=== PATIENT | female | born 1995 | race Caucasian/White ===

== ENCOUNTER 2017-02-10 22:33 | Emergency (ER) | payer OTHER ==
--- NOTE | 2017-02-10 23:26 | C.PDOC ---
History Of Present Illness A 21 y/o F c/o headache with associated nausea and vomiting for a week. Denies visual changes, dizziness, head injury, weakness, or any other complaints. Time Seen by Provider: 02/10/17 23:23 Chief Complaint (Nursing): Headache History Per: Patient History/Exam Limitations: no limitations Onset/Duration Of Symptoms: Days Current Symptoms Are (Timing): Still Present Severity: Mild Associated Symptoms: Nausea, Vomiting. denies: Photophobia, Blurred Vision, Extremity Weakness Recent travel outside of the [place]: No Additional History Per: Patient Past Medical History Reviewed: Historical Data, Nursing Documentation, Vital Signs Vital Signs: Last Vital Signs Temp 100.8 F H 02/10/17 22:40 Pulse 102 H 02/10/17 22:40 Resp 16 02/10/17 22:40 BP 125/78 02/10/17 22:40 Pulse Ox 99 02/10/17 23:27 Family History: States: Unknown Family Hx - Social History Hx Alcohol Use: No Hx Substance Use: No - Immunization History Hx Influenza Vaccination: No Hx Pneumococcal Vaccination: No Review Of Systems Except As Marked, All Systems Reviewed And Found Negative. Constitutional: Negative for: Other (Head injury) Eyes: Negative for: Vision Change Gastrointestinal: Positive for: Nausea, Vomiting Neurological: Positive for: Headache. Negative for: Weakness, Dizziness Physical Exam - Physical Exam Appears: Non-toxic, In Acute Distress (Moderate distress) Skin: Warm, Dry Head: Atraumatic, Normacephalic Eye(s): bilateral: Other (Fundoscopy normal) Neck: Normal ROM, Supple, No Other (Rigidity) Cardiovascular: Rhythm Regular Respiratory: Normal Breath Sounds, No Rales, No Rhonchi, No Wheezing Neurological/Psych: Oriented x3, Normal Speech, Normal Cognition, Normal Cranial Nerves, Normal Motor, Normal Sensation, Other (No focal deficit) Gait: Steady ED Course And Treatment - Laboratory Results Result Diagrams: 02/10/17 23:32 02/10/17 23:32 O2 Sat by Pulse Oximetry: 99 (RA) Pulse Ox Interpretation: Normal Medical Decision Making Medical Decision Making: Impression: A 21 y/o F c/o headache with associated nausea and vomiting for a week. Plans: -CT Head -Blood labs -Toradol -Reglan -UA Disposition Counseled Patient/Family Regarding: Diagnosis - Disposition Referrals: [facility] [Outside] Disposition: HOME/ ROUTINE Disposition Time: 00:18 Condition: STABLE Prescriptions: Metoclopramide [Reglan] 1 tab PO TID PRN #25 tab PRN Reason: Nausea/Vomiting Naproxen [Naprosyn Tab] 375 mg PO TIDPC #20 tab Instructions: General Headache (ED) Forms: [facility] ([place]) - POA Present On Arrival: None - Clinical Impression Clinical Impression: Headache - Scribe Statement The provider has reviewed the documentation as recorded by the Scribe Mame carballo All medical record entries made by the Scribe were at my direction and personally dictated by me. I have reviewed the chart and agree that the record accurately reflects my personal performance of the history, physical exam, medical decision making, and the department course for this patient. I have also personally directed, reviewed, and agree with the discharge instructions and disposition.
[2017-02-10 23:35] LABS: BASO % 0.5 % (0.0-2.0); EOS % 0.1 % (0.0-4.0); LYMPH # 0.9 K/uL (1.0-4.3); LYMPH % 10.1 % (20.0-40.0); MEAN CELL VOLUME 89.1 fL (81.0-99.0); MEAN CORPUSCULAR HEMOGLOBIN 30.2 pg (27.0-31.0); MEAN CORPUSCULAR HGB CONC 33.9 g/dL (33.0-37.0); MEAN PLATELET VOLUME 8.1 fL (7.2-11.7); MONO # 0.3 K/uL (0.0-0.8); MONO % 3.2 % (0.0-10.0); RED CELL DISTRIBUTION WIDTH 14.1 % (11.5-14.5); WHITE BLOOD COUNT 9.1 K/uL (4.8-10.8)
[2017-02-10 23:43] LABS: CHLORIDE 96 mmol/L (98-107)
[2017-02-10 23:44] LABS: POTASSIUM 4.1 mmol/L (3.6-5.2); SODIUM 138 mmol/L (132-148)
[2017-02-10 23:46] LABS: ALKALINE PHOSPHATASE 61 U/L (38-126); AST/SGOT 25 U/L (14-36); BILIRUBIN,TOTAL 0.6 mg/dL (0.2-1.3); BLOOD UREA NITROGEN 9 mg/dL (7-17); CARBON DIOXIDE 25 mmol/L (22-30); GFR AFRICAN-AMERICAN > 60; GLUCOSE,RANDOM 92 mg/dL (65-105); TOTAL PROTEIN 8.4 g/dL (6.3-8.3)
[2017-02-10 23:47] LABS: ALT/SGPT 27 U/L (9-52); CALCIUM 9.4 mg/dl (8.6-10.4)
--- NOTE | 2017-02-10 23:55 | CT ---
EXAM: CT Head Without Intravenous Contrast CLINICAL HISTORY: 21 years old, female; Pain; Headache TECHNIQUE: Axial computed tomography images of the head/brain without intravenous contrast. This CT exam was performed using one or more of the following dose reduction techniques: automated exposure control, adjustment of the mA and/or kV according to patient size, and/or use of iterative reconstruction technique. COMPARISON: No relevant prior studies available. FINDINGS: Brain: No acute intracranial hemorrhage. No significant white matter disease. No edema. Ventricles: No significant ventriculomegaly. Bones: No acute displaced fracture. Sinuses: Unremarkable as visualized. No acute sinusitis. Mastoid air cells: Unremarkable as visualized. No mastoid effusion. IMPRESSION: No acute intracranial hemorrhage, or suspicious mass effect.
[2017-02-11 00:47] VITALS: BP 95/60; PULSE 100; RESP 18; TEMP 98.7; O2SAT 96
== END 2017-02-11 00:46 | disposition home or self-care (01) ==
LOC: C.ER 22:33
DX: R51 Headache (principal)
CPT/HCPCS: 70450; 80053; 84703; 85025; 96374; 96375; 99284; J1885; J2765

== ENCOUNTER 2017-02-11 11:23 | Inpatient (IN) | payer OTHER ==
--- NOTE | 2017-02-11 12:37 | C.PDOC ---
History Of Present Illness 21 y/o female presents to emergency department with complaint of headache for more than 1 week, worse since Wednesday (3 days ago). Patient reports she was seen by an outside physician and given Relpax. Patient notes she feels headache behind her eyes and describes pain as throbbing. Patient was evaluated in this ER last night for similar symptoms, was discharged home, but now states she is not feeling better. Patient reports she took 1 dose of medication prescribed last night w/o relief, states she feels worse today, and feels "cold". Patient also reports pain in the back of her head and upper back / neck. Denies recent travel, visual changes, nausea, vomiting, new weakness or numbness, or other associated symptoms. Time Seen by Provider: 02/11/17 11:58 Chief Complaint (Nursing): Headache History Per: Patient History/Exam Limitations: no limitations Onset/Duration Of Symptoms: Days Current Symptoms Are (Timing): Worse Quality: "Pain", Other (throbbing) Associated Symptoms: denies: Blurred Vision, Nausea, Vomiting, Extremity Weakness Recent travel outside of the [place]: No Past Medical History Reviewed: Historical Data, Nursing Documentation, Vital Signs Vital Signs: Last Vital Signs Temp 97.5 F L 02/11/17 18:15 Pulse 89 02/11/17 18:15 Resp 18 02/11/17 18:15 BP 107/66 02/11/17 18:15 Pulse Ox 99 02/11/17 18:15 - Medical History PMH: No Chronic Diseases Family History: States: Unknown Family Hx - Social History Hx Alcohol Use: No Hx Substance Use: No - Immunization History Hx Influenza Vaccination: No Hx Pneumococcal Vaccination: No Review Of Systems Constitutional: Positive for: Fever Eyes: Negative for: Vision Change, Redness ENT: Negative for: Ear Pain, Throat Pain Cardiovascular: Negative for: Chest Pain, Palpitations Respiratory: Negative for: Cough, Shortness of Breath, Wheezing Gastrointestinal: Negative for: Nausea, Vomiting Musculoskeletal: Positive for: Neck Pain Skin: Negative for: Rash Neurological: Positive for: Headache. Negative for: Weakness, Numbness, Dizziness Physical Exam - Physical Exam Appears: Non-toxic, No Acute Distress Skin: Warm (skin warm to touch), Dry, No Rash Head: Atraumatic, Normacephalic Eye(s): bilateral: Normal Inspection, PERRL, EOMI Nose: Normal Oral Mucosa: Moist Throat: Normal, No Erythema, No Exudate Neck: Supple, Other (discomfort with flexion) Chest: Symmetrical Cardiovascular: Rhythm Regular (tachycardic) Respiratory: Normal Breath Sounds, No Rales, No Rhonchi, No Wheezing Gastrointestinal/Abdominal: Soft, No Tenderness, No Guarding, No Rebound Back: Normal Inspection, No Vertebral Tenderness, No Paraspinal Tenderness Extremity: Normal ROM, Capillary Refill (< 2 sec.), Other (moving all extremities spontaneously, good strength/motor) Extremity: Bilateral: Normal Color And Temperature Neurological/Psych: Oriented x3, Normal Speech, Normal Cognition, Normal Cranial Nerves, Normal Motor, Normal Sensation ED Course And Treatment - Laboratory Results Result Diagrams: 02/11/17 13:12 02/11/17 13:12 O2 Sat by Pulse Oximetry: 100 (RA) Pulse Ox Interpretation: Normal Lumbar Puncture - Time Out Time Out: Site verified, Patient ID confirmed, Sterile procedures obs. - Consent obtained Consent obtained: Written - Performed by Performed by: Attending Physician - Indications Indication(s): Suspected menigitis - Contraindications Contraindications: None - Patient Position Patient position: Sitting - Local Anesthetic Location: L4/L5 - Fluid Appearance Fluid Appearance: Clear - Post-procedure Post-procedure: No leak/bld from LP site, Dressing applied, Patient laid flat, Neurovascular status nml - CSF Studies CSF Studies: Cell count/diff, Glucose, Protein, Gram stain, culture/sensitivity - Complications Complications: None - Patient tolerated procedure Patient tolerated procedure: Well Medical Decision Making Medical Decision Making: Plan: * Labs, Reglan, Tylenol Prior Visits: Notes and results from previous visits were reviewed Progress Notes: Lumbar puncture performed by Dr. Pitts as described above. Cultures ordered, sent to lab. Pt given Vancomycin, Toradol, fluids. Discussed with Dr Chapman; will admit to his service on iso. 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 - Scribe Statement The provider has reviewed the documentation as recorded by the Scribwil Ludwig All medical record entries made by the Sarahibwil were at my direction and personally dictated by me. I have reviewed the chart and agree that the record accurately reflects my personal performance of the history, physical exam, medical decision making, and the department course for this patient. I have also personally directed, reviewed, and agree with the discharge instructions and disposition.
[2017-02-11 13:28] LABS: BASO % 0.4 % (0.0-2.0); HEMOGLOBIN 12.2 g/dL (11.0-16.0); LYMPH # 1.3 K/uL (1.0-4.3); LYMPH % 13.4 % (20.0-40.0); MEAN CELL VOLUME 88.5 fL (81.0-99.0); MEAN CORPUSCULAR HEMOGLOBIN 29.5 pg (27.0-31.0); MEAN CORPUSCULAR HGB CONC 33.4 g/dL (33.0-37.0); MEAN PLATELET VOLUME 8.3 fL (7.2-11.7); MONO # 0.4 K/uL (0.0-0.8); MONO % 3.9 % (0.0-10.0); NEUT # 7.8 K/uL (1.8-7.0); NEUT % 82.3 % (50.0-75.0); RBC 4.14 Mil/uL (3.80-5.20); RED CELL DISTRIBUTION WIDTH 14.1 % (11.5-14.5); WHITE BLOOD COUNT 9.5 K/uL (4.8-10.8)
[2017-02-11] MEDS ORDERED: cefTRIAXone 2 GM IN NS 2 GM/100 ML BAG IVPB STA (13:33)
[2017-02-11 13:45] LABS: ALBUMIN 3.8 g/dL (3.5-5.0)
[2017-02-11 13:48] LABS: AST/SGOT 26 U/L (14-36); BLOOD UREA NITROGEN 11 mg/dL (7-17); GFR AFRICAN-AMERICAN > 60; GFR NON-AFRICAN AMERICAN > 60
[2017-02-11 13:49] LABS: ALT/SGPT 28 U/L (9-52); CALCIUM 8.5 mg/dl (8.6-10.4)
[2017-02-11 13:52] LABS: FLUID TYPE SPINAL FLUID
[2017-02-11 14:03] LABS: SQUAMOUS EPITHIAL 2 /hpf (0-5); URINE BACTERIA OCC (<OCC); URINE BILIRUBIN NEGATIVE (NEGATIVE); URINE BLOOD 1+ (NEGATIVE); URINE CLARITY Clear (Clear); URINE COLOR Straw (YELLOW); URINE GLUCOSE (UA) NORMAL (Normal); URINE LEUKOCYTE ESTERASE 2+ Leu/uL (Negative); URINE NITRATE NEGATIVE (NEGATIVE); URINE PROTEIN NEGATIVE (NEGATIVE); URINE UROBILINOGEN NORMAL mg/dL (0.2-1.0)
[2017-02-11] MEDS ORDERED: Dextrose 5%/0.9% NS 1,000 ML IV ONE ×2 (14:29→15:08)
[2017-02-11 14:37] LABS: CSF APPEARANCE CLEAR/COLORLESS (CLEAR); CSF VOLUME 1 mL (0-1)
[2017-02-11 14:38] LABS: CSF MONO/MACROPHAGE 1 % (0-0)
[2017-02-11] MEDS ORDERED: Vancomycin 1 GM 1 GM/250 ML BAG IVPB ONE (15:52)
[2017-02-11] MEDS: Acyclovir 500 MG in Sodium Chloride 0.9% 100 ML IV SCH (21:36)
[2017-02-12 00:21] LABS: VENOUS BLOOD GAS BASE EXCESS 1.6 mmol/L (0.0-2.0); VENOUS BLOOD GAS PCO2 26 mmHg (40-60); VENOUS BLOOD GAS PO2 66 mm/Hg (30-55); VENOUS BLOOD PH 7.55 (7.32-7.43)
[2017-02-12] MEDS ORDERED: cefTRIAXone 2 GM in Sodium Chloride 0.9% 100 ML IVPB SCH ×3 (03:00→14:30)
[2017-02-12] MEDS: cefTRIAXone 2 GM in Sodium Chloride 0.9% 100 ML IVPB SCH ×2 (03:03→15:35)
[2017-02-12 04:54] LABS: VENOUS BLOOD GAS BASE EXCESS 2.3 mmol/L (0.0-2.0); VENOUS BLOOD GAS PCO2 27 mmHg (40-60); VENOUS BLOOD GAS PO2 26 mm/Hg (30-55); VENOUS BLOOD PH 7.55 (7.32-7.43)
[2017-02-12] MEDS: Acyclovir 500 MG in Sodium Chloride 0.9% 100 ML IV SCH ×3 (05:17→21:30)
--- NOTE | 2017-02-12 07:43 | CP.PCM.PN ---
Subjective - Date & Time of Evaluation Date of Evaluation: 02/12/17 Time of Evaluation: 07:45 - Subjective Subjective: PGY 3 Medicine Progress Note- Dr. Chapman's Service: 21 year old female with no PMHx admitted yesterday with headache. Headaches have been present for the past week and have worsened over the past 3 days. Patient was in the ED the day before and was discharged home. Patient returned due to persistence of symptoms. LP was done in the ED and patient was placed on isolation. Patient seen and examined at bedside this AM. Patient reports headaches this AM. Nursing reports fevers overnight. No nausea or vomiting. Denies recent travel. PMHx: none Meds: none Surgery Hx: none Allergies: None Objective - Vital Signs/Intake and Output Vital Signs (last 24 hours): Temp Pulse Resp BP Pulse Ox 101.5 F H 130 H 20 102/58 L 96 02/12/17 00:00 02/11/17 23:51 02/11/17 23:51 02/11/17 23:51 02/11/17 23:51 - Medications Medications: Current Medications Acetaminophen (Tylenol 325mg Tab) 650 mg PO Q6 PRN PRN Reason: Headache Last Admin: 02/12/17 04:27 Dose: 650 mg Vancomycin HCl 1,000 mg/ (Sodium Chloride) 250 mls @ 166.6 mls/hr IVPB Q12H [facility] Last Admin: 02/12/17 01:14 Dose: 166.6 mls/hr Acyclovir 500 mg/ Sodium (Chloride) 100 mls @ 100 mls/hr IV Q8H [facility] Last Admin: 02/12/17 05:17 Dose: 100 mls/hr Ceftriaxone Sodium 2 gm/ (Sodium Chloride) 100 mls @ 100 mls/hr IVPB Q12H [facility] Last Admin: 02/12/17 03:03 Dose: 100 mls/hr Ondansetron HCl (Zofran Inj) 4 mg IVP Q6 PRN PRN Reason: Nausea/Vomiting Stop: 02/16/17 18:57 Last Admin: 02/11/17 20:04 Dose: 4 mg Pantoprazole Sodium (Protonix Ec Tab) 40 mg PO DAILY [facility] - Constitutional Appears: No Acute Distress - Head Exam Head Exam: NORMAL INSPECTION, NORMOCEPHALIC - Respiratory Exam Respiratory Exam: Clear to Ausculation Bilateral, NORMAL BREATHING PATTERN - Cardiovascular Exam Cardiovascular Exam: REGULAR RHYTHM, +S1, +S2 - GI/Abdominal Exam GI & Abdominal Exam: Soft. absent: Distended, Tenderness - Extremities Exam Extremities Exam: Normal Inspection - Neurological Exam Neurological Exam: Alert, Awake, Oriented x3 - Psychiatric Exam Psychiatric exam: Normal Affect, Normal Mood - Skin Skin Exam: Normal Color, Warm Assessment and Plan (1) Fever Assessment & Plan: Patient with T Max of 102.8 overnight. Patient continued to have fevers through the AM. No leukocytosis this AM. No left shift. LP done in the ED for concern of meningitis. ID consult placed- Dr. Bullard- help appreciated Neuro consult placed- Dr. Collins- help appreciated f/u Brain MRI f/u Blood Cx CSF studies showed no growth at 24 hrs. CSF gram stain shows polymorphous WBCs. No organisms seen. CSF: WBC 425, RBC 28, Total protein 120, glucose 36. VDRL non reactive. f/u CSF Fungal Cx Lactid Acid thie AM 1.8, improved from 2.7 last night. * Acyclovir IVPB - Day 2 * Vancomycin IVPB - Day 2 * Rocephin IVPB- Day 2 Status: Acute (2) Headache Assessment & Plan: Likely secondary to Meningitis. See plan above. Start Percocet 1 tab PO Q4H PRN Status: Acute (3) Prophylactic measure Assessment & Plan: Protonix 40 SC daily SCDs All management as per Dr. Chapman. Status: Acute
[2017-02-12] MEDS: Pantoprazole 40 mg EC Tab PO SCH (11:06)
[2017-02-12 11:42] LABS: BASO # 0.1 K/uL (0.0-0.2); BASO % 0.5 % (0.0-2.0); HEMOGLOBIN 11.7 g/dL (11.0-16.0); LYMPH # 1.7 K/uL (1.0-4.3); LYMPH % 16.2 % (20.0-40.0); MEAN CELL VOLUME 88.6 fL (81.0-99.0); MEAN CORPUSCULAR HEMOGLOBIN 30.1 pg (27.0-31.0); MEAN CORPUSCULAR HGB CONC 33.9 g/dL (33.0-37.0); MEAN PLATELET VOLUME 8.3 fL (7.2-11.7); MONO # 1.7 K/uL (0.0-0.8); MONO % 15.5 % (0.0-10.0); NEUT # 7.2 K/uL (1.8-7.0); NEUT % 67.8 % (50.0-75.0); RBC 3.89 Mil/uL (3.80-5.20); RED CELL DISTRIBUTION WIDTH 14.3 % (11.5-14.5); WHITE BLOOD COUNT 10.7 K/uL (4.8-10.8)
[2017-02-12 11:56] LABS: ALBUMIN 3.3 g/dL (3.5-5.0)
[2017-02-12 11:58] LABS: GFR AFRICAN-AMERICAN > 60; GFR NON-AFRICAN AMERICAN > 60
[2017-02-12 11:59] LABS: ALT/SGPT 21 U/L (9-52); AST/SGOT 20 U/L (14-36); BLOOD UREA NITROGEN 5 mg/dL (7-17); CALCIUM 8.2 mg/dl (8.6-10.4)
[2017-02-12 12:00] LABS: MAGNESIUM 1.9 mg/dL (1.6-2.3)
[2017-02-12 12:10] LABS: N MENINGITIS ACY/W135 NOT REQUIRED (NEGATIVE); N MENINGITIS B/ECOLI K1 NOT REQUIRED (NEGATIVE); STREP PNEUMONIAE NEGATIVE (NEGATIVE); STREPTOCOCCUS B NOT REQUIRED (NEGATIVE)
[2017-02-12] MEDS ORDERED: Oxycodone/Acetaminophen 5/325 mg Tab PO ONE (13:25)
[2017-02-12] MEDS ORDERED: Gadodiamide 287 MG/ML VIAL (15ML) IV ONE (14:35)
[2017-02-12] MEDS ORDERED: Potassium Chloride 20 mEq ER Tab PO ONE (14:42)
--- NOTE | 2017-02-12 15:38 | MRI ---
PROCEDURE: MRI BRAIN WITH AND WITHOUT CONTRAST HISTORY: r/o meningitis COMPARISON: Noncontrast head CT from 02/10/2017 TECHNIQUE: Multiplanar, multisequence MR images of the brain were obtained with and without intravenous contrast enhancement. 12 mL Omniscan was injected intravenously. FINDINGS: HEMORRHAGE: Noncontrast head CT from [facility]: No evidence of an acute or early subacute infarction. BRAIN PARENCHYMA: Long-white matter differentiation is preserved. There is no mass, mass effect or abnormal extra-axial fluid collection. There is no territorial infarction. The midline sagittal structures are normal. ENHANCEMENT: No abnormal intracranial enhancement. VENTRICLES: The ventricles are normal in size, shape and configuration. CRANIUM: There is normal bone marrow signal pattern. ORBITS: Grossly unremarkable. PARANASAL SINUSES/MASTOIDS: Predominantly clear. VASCULAR SYSTEM: There are normal signal voids in the larger intracranial arteries. . OTHER FINDINGS: None . IMPRESSION: No acute intracranial abnormality. Specifically no evidence of abnormal leptomeningeal enhancement or obstructive hydrocephalus to suggest meningitis as clinically questioned.
--- NOTE | 2017-02-12 16:33 | CP.PCM.CON ---
History of Present Illness - History of Present Illness History of Present Illness: 21 year old female admitted yesterday with headache and fever x several days Patient was in the ED the day before and was discharged home. Patient returned due to persistence of symptoms. LP was done in the ED and patient was placed on isolation. works as informal waiter/waitress in [employer] No travel, no pets, no known ill contacts, denies bites claims up to date with vaccines PMHx: none Meds: none Surgery Hx: none Allergies: None Review of Systems - Constitutional Constitutional: As Per HPI, Anorexia, Chills, Fever, Headache, Malaise, Weakness - EENT Eyes: absent: As Per HPI, Blind Spots, Blurred Vision, Change in Vision, Decreased Night Vision, Diplopia, Discharge, Dry Eye, Exophthalmos, Floaters, Irritation, Itchy Eyes, Loss of Peripheral Vision, Pain, Photophobia, Requires Corrective Lenses, Sees Flashes, Spots in Vision, Tunnel Vision, Other Visual Disturbances, Loss of Vision, Other Ears: absent: As Per HPI, Decreased Hearing, Ear Discharge, Ear Pain, Tinnitus, Abnormal Hearing, Disequilibrium, Dizziness, Other Nose/Mouth/Throat: absent: As Per HPI, Epistaxis, Nasal Congestion, Nasal Discharge, Nasal Obstruction, Nasal Trauma, Nose Pain, Post Nasal Drip, Sinus Pain, Sinus Pressure, Bleeding Gums, Change in Voice, Dental Pain, Dry Mouth, Dysphagia, Halitosis, Hoarsness, Lip Swelling, Mouth Lesions, Mouth Pain, Odynophagia, Sore Throat, Throat Swelling, Tongue Swelling, Facial Pain, Neck Pain, Neck Mass, Other - Breasts Breasts: absent: As Per HPI, Change in Shape, Mass, Pain, Nipple Discharge, Nipple Inversion, Skin Changes, Swelling, Other - Cardiovascular Cardiovascular: absent: As Per HPI, Acrocyanosis, Chest Pain, Chest Pain at Rest , Chest Pain with Activity, Claudication, Diaphoresis, Dyspnea, Dyspnea on Exertion, Edema, Irregular Heart Rhythm, Pain Radiating to Arm/Neck/Jaw, Leg Edema, Leg Ulcers, Lightheadedness, Orthopnea, Palpitations, Paroxysmal Nocturnal Dyspnea, Pedal Edema, Radiating Pain, Rapid Heart Rate, Slow Heart Rate, Syncope, Other - Respiratory Respiratory: absent: As Per HPI, Cough, Dyspnea, Hemoptysis, Dyspnea on Exertion , Wheezing, Snoring, Stridor, Pain on Inspiration, Chest Congestion, Excessive Mucous Production, Change in Mucous Color, Pain with Coughing, Other - Gastrointestinal Gastrointestinal: absent: As Per HPI, Abdominal Pain, Belching, Bloating, Change in Bowel Habits, Change in Stool Character, Coffee Ground Emesis, Constipation, Cramping, Diarrhea, Dyspepsia, Dysphagia, Early Satiety, Excessive Flatus, Fecal Incontinence, Heartburn, Hematemesis, Hematochezia, Loose Stools, Melena, Nausea, Odynophagia, Temesmus, Vomiting, Other - Genitourinary Genitourinary: absent: As Per HPI, Change in Urinary Stream, Difficulty Urinating, Dysuria, Flank Pain, Hematuria, Pyuria, Nocturia, Urinary Incontinence, Urinary Frequency, Urinary Hesitance, Urinary Urgency, Voiding Freq/Small Amts, Freq UTI, Hx Renal/Bladder Calculi, Hx /Renal Surgery, Bladder Distension, Other - Reproductive: Female Reproductive:Female: absent: As Per HPI, Amenorrhea, Amenorrhea/ Control, Currently Menstual, Cycle <21 Days, Cycle >35 Days, Cycle Variable, Menses 1-7 Days, Menses >/= 8 Days, Menses Variable, Cycle > 4 Weeks Between, No Menses for 6 Months, Heavy Menses, Light Menses, Normal Menses, Spotting Between Cycles , S/P Hysterectomy, Menopausal, Post Menopausal, Premenarche, Abnormal Vaginal Bleeding, Dysmenorrhea, Dyspareunia, Genital Lesions, Genital Pruritis, Pelvic Pain, Prolapse Symptoms, Sexual Dysfunction, Vaginal Discharge, Vaginal Dryness , Vaginal Odor, Vaginal Pruritis, Other - Menstruation Menstruation: absent: As Per HPI, Amenorrhea, Amenorrhea/ Control, Currently Menstual, Cycle <21 Days, Cycle >35 Days, Cycle Variable, Menses 1-7 Days, Menses >/= 8 Days, Menses Variable, Cycle > 4 Weeks Between, No Menses for 6 Months, Heavy Menses, Light Menses, Normal Menses, Spotting Between Cycles , S/P Hysterectomy, Menopausal, Post Menopausal, Premenarche, Abnormal Vaginal Bleeding, Dysmenorrhea, Other - Musculoskeletal Musculoskeletal: absent: As Per HPI, Abnormal Gait, Arthralgias, Atrophy, Back Pain, Deformity, Joint Swelling, Limited Range of Motion, Loss of Height, Muscle Cramps, Muscle Weakness, Myalgias, Neck Pain, Numbness, Radiating Pain into Limb, Stiffness, Tingling, Other - Integumentary Integumentary: absent: As Per HPI, Acne, Alopecia, Bleeding Lesions, Change in Hair, Change in Nails, Change in Pigmentation, Changing Lesions, Dry Skin, Erythema, Furuncle, Hirsutism, Lesions, New Lesions, Non-Healing Lesions, Photosensitivity, Pruritus, Rash, Skin Pain, Skin Ulcer, Sores, Striae, Swelling , Unusual Bruising, Wounds, Jaundice, Other - Neurological Neurological: As Per HPI - Psychiatric Psychiatric: absent: As Per HPI, Abnormal Sleep Pattern, Anhedonia, Anxiety, Auditory Hallucinations, Behavioral Changes, Change in Appetite, Change in Libido, Confusion, Depression, Difficulty Concentrating, Hallucinations, Homicidal Ideation, Hopelessness, Irritability, Memory Loss, Mood Swings, Panic Attacks, Paranoia, Suicidal Ideation, Visual Hallucinations, Tactile Hallucinations, Other - Endocrine Endocrine: absent: As Per HPI, Change in Body Appearance, Change in Libido, Cold Intolorance, Deepening of Voice, Excessive Sweating, Fatigue, Flushing, Heat Intolorance, Increase in Ring/Shoe/Hat Size, Palpitations, Polydipsia, Polyphagia, Polyuria, Other - Hematologic/Lymphatic Hematologic: absent: As Per HPI, Easy Bleeding, Easy Bruising, Lymphadenopathy, Other Past Patient History - Past Medical History & Family History Past Medical History?: No - Past Social History Smoking Status: Never Smoked - MUSCULOSKELETAL/RHEUMATOLOGICAL Hx Falls: No - PSYCHIATRIC Hx Substance Use: No - SURGICAL HISTORY Hx Surgeries: No - ANESTHESIA Hx Anesthesia: No Hx Anesthesia Reactions: No Meds Allergies/Adverse Reactions: Allergies Allergy/AdvReac Type Severity Reaction Status Date / Time No Known Allergies Allergy Verified 02/11/17 11:40 - Medications Medications: Current Medications Acetaminophen (Tylenol 325mg Tab) 650 mg PO Q6 PRN PRN Reason: Headache Last Admin: 02/12/17 08:23 Dose: 650 mg Vancomycin HCl 1,000 mg/ (Sodium Chloride) 250 mls @ 166.6 mls/hr IVPB Q12H [facility] Last Admin: 02/12/17 13:31 Dose: 166.6 mls/hr Acyclovir 500 mg/ Sodium (Chloride) 100 mls @ 100 mls/hr IV Q8H [facility] Last Admin: 02/12/17 05:17 Dose: 100 mls/hr Ceftriaxone Sodium 2 gm/ (Sodium Chloride) 100 mls @ 100 mls/hr IVPB Q12H [facility] Last Admin: 02/12/17 15:35 Dose: 100 mls/hr Ondansetron HCl (Zofran Inj) 4 mg IVP Q6 PRN PRN Reason: Nausea/Vomiting Stop: 02/16/17 18:57 Last Admin: 02/12/17 13:55 Dose: 4 mg Oxycodone/Acetaminophen (Percocet 5/325 Mg Tab) 1 tab PO Q4H PRN PRN Reason: Headache Stop: 02/15/17 14:47 Pantoprazole Sodium (Protonix Ec Tab) 40 mg PO DAILY [facility] Last Admin: 02/12/17 11:06 Dose: 40 mg Physical Exam - Constitutional Appears: Toxic, In Acute Distress - Head Exam Head Exam: ATRAUMATIC, NORMAL INSPECTION, NORMOCEPHALIC - Eye Exam Eye Exam: PERRL. absent: Scleral icterus - ENT Exam ENT Exam: Mucous Membranes Dry, Normal External Ear Exam, Normal Oropharynx Additional comments: + nucal rigidity - Neck Exam Neck exam: Negative for: Lymphadenopathy, Thyromegaly - Respiratory Exam Respiratory Exam: Decreased Breath Sounds, Clear to Auscultation Bilateral - Cardiovascular Exam Cardiovascular Exam: REGULAR RHYTHM, +S1, +S2 - GI/Abdominal Exam GI & Abdominal Exam: Diminished Bowel Sounds, Soft. absent: Distended, Guarding , Rebound, Rigid, Tenderness - Rectal Exam Rectal Exam: Deferred - Exam Exam: NORMAL INSPECTION - Extremities Exam Extremities exam: Positive for: pedal pulses present. Negative for: calf tenderness, pedal edema, tenderness - Back Exam Back exam: absent: CVA tenderness (L), CVA tenderness (R), paraspinal tenderness - Neurological Exam Neurological exam: Alert, CN II-XII Intact, Oriented x3, Reflexes Normal - Psychiatric Exam Psychiatric exam: Depressed, Flat Affect - Skin Skin Exam: Dry, Intact Results - Vital Signs Recent Vital Signs: Last Vital Signs Temp 102.7 F H 02/12/17 08:23 Pulse 107 H 02/12/17 08:15 Resp 20 02/12/17 08:15 BP 117/73 02/12/17 08:15 Pulse Ox 97 02/12/17 08:15 - Labs Result Diagrams: 02/12/17 11:35 02/12/17 11:35 Labs: Laboratory Results - last 24 hr 02/11/17 02/11/17 02/12/17 19:45 19:45 04:50 WBC RBC Hgb Hct MCV MCH MCHC RDW Plt Count MPV Neut % (Auto) Lymph % (Auto) Mcleod % (Auto) Eos % (Auto) Baso % (Auto) Neut # Lymph # Mcleod # Eos # Baso # pO2 26 L VBG pH 7.55 H VBG pCO2 27 L VBG HCO3 25.7 VBG Total CO2 24.4 VBG O2 Sat (Calc) 65.6 H VBG Base Excess 2.3 H VBG Potassium 3.6 Sodium 142.0 Chloride 111.0 H Glucose 135 H Lactate 1.8 Potassium Carbon Dioxide Anion Gap BUN Creatinine Est GFR ( Amer) Est GFR (Non-Af Amer) Random Glucose Calcium Magnesium Total Bilirubin AST ALT Alkaline Phosphatase Total Protein Albumin Globulin Albumin/Globulin Ratio Venous Blood Potassium 3.6 HIV 1&2 Antibody Screen Influenza Typ A,B (EIA) Negative for flu a/b H.influenzae Type B Ag Not required N.meningitidis ACY/W135 Not required N.meningi B/E.coli K1 Ag Not required Group B Strep Antigen Not required S. pneumoniae Antigen Negative 02/12/17 02/12/17 02/12/17 07:30 11:35 11:35 WBC 10.7 RBC 3.89 Hgb 11.7 Hct 34.5 MCV 88.6 MCH 30.1 MCHC 33.9 RDW 14.3 Plt Count 255 MPV 8.3 Neut % (Auto) 67.8 Lymph % (Auto) 16.2 L Mcleod % (Auto) 15.5 H Eos % (Auto) 0.0 Baso % (Auto) 0.5 Neut # 7.2 H Lymph # 1.7 Mcleod # 1.7 H Eos # 0.0 Baso # 0.1 pO2 VBG pH VBG pCO2 VBG HCO3 VBG Total CO2 VBG O2 Sat (Calc) VBG Base Excess VBG Potassium Sodium 140 Chloride 102 Glucose Lactate Potassium 3.5 L Carbon Dioxide 22 Anion Gap 19 BUN 5 L Creatinine 0.7 Est GFR ( Amer) > 60 Est GFR (Non-Af Amer) > 60 Random Glucose 128 H Calcium 8.2 L Magnesium 1.9 Total Bilirubin 0.5 AST 20 ALT 21 Alkaline Phosphatase 37 L D Total Protein 6.5 Albumin 3.3 L Globulin 3.2 Albumin/Globulin Ratio 1.0 Venous Blood Potassium HIV 1&2 Antibody Screen Negative Influenza Typ A,B (EIA) H.influenzae Type B Ag N.meningitidis ACY/W135 N.meningi B/E.coli K1 Ag Group B Strep Antigen S. pneumoniae Antigen Assessment & Plan (1) Meningitis Status: Acute (2) Meningitis Status: Acute (3) Fever Status: Acute (4) Headache Status: Acute - Assessment and Plan (Free Text) Assessment: meningitis- likely viral await neuro consult cont iv antibiotics pending cultures
[2017-02-12] MEDS: Oxycodone/Acetaminophen 5/325 mg Tab PO PRN ×2 (17:33→21:30)
--- NOTE | 2017-02-12 17:47 | CP.PCM.PCO ---
Physician Communication Note - Physician Communication Note Physician Communication Note: viral meningitis, c/w antiviral, supportive mx, fioricet for serrano.
--- NOTE | 2017-02-12 21:26 | CON ---
DATE: 02/12/2017 HISTORY OF PRESENT ILLNESS: This is a 21-year-old female with past medical history not significant, came here with complaint of headache since Wednesday 3 days ago, and the patient went to see the private MD, who gave her Relpax for headache behind the eyes and came to the hospital emergency room. CAT scan of the head was done and the patient was discharged home and came back again with the similar complaints and at this time, the spinal tap was performed and appropriate antibiotics started. PAST MEDICAL HISTORY: As above. SOCIAL HISTORY: She does not smoke, does not drink. REVIEW OF SYSTEMS: Positive for headache and fever. PHYSICAL EXAMINATION VITAL SIGNS: Blood pressure 107/66. HEENT: Normocephalic and atraumatic. NECK: Supple. NEUROLOGIC: Awake and oriented to self and place. Cranial nerves II through XII are tested. Pupils are reactive. EOM intact. *------*. No facial asymmetry. Tongue midline. Motor examination, moves all the extremities. *------*. Deep tendon reflexes are 1+. Both plantars downgoing. Sensory appears intact. Cerebellar and gait deferred. LABORATORY DATA: WBC 9.5, hemoglobin 12.2, hematocrit 36.6 and platelets 286. Sodium 134, potassium 3.4, chloride 94, CO2 of 21, glucose 92, BUN 11, creatinine 0.5. Infectious disease consult was ordered and we started antibiotics and the spinal tap was done and the spinal tap is suggestive of meningitis, wbc is 425 and protein 120, glucose 36. Majority of these cells, lymphocytes. Workup in progress and we will follow. IMPRESSION: Headache, fever, probably meningitis. Prince Collins MD
[2017-02-13] MEDS: cefTRIAXone 2 GM in Sodium Chloride 0.9% 100 ML IVPB SCH ×2 (03:05→15:13)
[2017-02-13] MEDS: Oxycodone/Acetaminophen 5/325 mg Tab PO PRN ×2 (06:54→11:48)
[2017-02-13] MEDS: Acyclovir 500 MG in Sodium Chloride 0.9% 100 ML IV SCH ×3 (07:00→21:30)
[2017-02-13 07:15] LABS: BASO # 0.1 K/uL (0.0-0.2); BASO % 1.2 % (0.0-2.0); EOS % 0.3 % (0.0-4.0); HEMOGLOBIN 11.4 g/dL (11.0-16.0); LYMPH % 29.6 % (20.0-40.0); MEAN CELL VOLUME 89.1 fL (81.0-99.0); MEAN CORPUSCULAR HEMOGLOBIN 30.1 pg (27.0-31.0); MEAN CORPUSCULAR HGB CONC 33.8 g/dL (33.0-37.0); MEAN PLATELET VOLUME 8.3 fL (7.2-11.7); MONO # 0.8 K/uL (0.0-0.8); MONO % 11.1 % (0.0-10.0); NEUT % 57.8 % (50.0-75.0); NRBC % 0.1 % (0.0-2.0); RBC 3.79 Mil/uL (3.80-5.20); WHITE BLOOD COUNT 6.9 K/uL (4.8-10.8)
[2017-02-13 08:06] LABS: ALBUMIN 3.2 g/dL (3.5-5.0)
[2017-02-13 08:08] LABS: GFR AFRICAN-AMERICAN > 60; GFR NON-AFRICAN AMERICAN > 60
[2017-02-13 08:09] LABS: ALB/GLOB RATIO 0.9 (1.0-2.1); ALT/SGPT 24 U/L (9-52); AST/SGOT 19 U/L (14-36); BLOOD UREA NITROGEN 3 mg/dL (7-17)
[2017-02-13 08:10] LABS: MAGNESIUM 1.8 mg/dL (1.6-2.3)
[2017-02-13] MEDS: Pantoprazole 40 mg EC Tab PO SCH (09:18)
[2017-02-13] MEDS ORDERED: DiphenhydrAMINE 12.5 mg/5 ml LIQ UD (5 ml) PO ONE (21:34)
[2017-02-14] MEDS: cefTRIAXone 2 GM in Sodium Chloride 0.9% 100 ML IVPB SCH ×2 (02:45→15:24)
--- NOTE | 2017-02-14 03:16 | HP ---
HISTORY OF PRESENT ILLNESS: A 21-year-old female in the hospital with headaches and fever. The patient came to the hospital for admission. The patient denies any . PHYSICAL EXAMINATION: GENERAL: The patient is awake, alert and oriented. VITAL SIGNS: Temperature is 98, pulse 90. HEENT: Within normal limits. NECK: Supple. CHEST: Symmetrical. HEART: Regular. ABDOMEN: Soft. EXTREMITIES: No edema. IMPRESSION: The patient suffers from antibiotics. Halle Chapman MD
[2017-02-14] MEDS: Acyclovir 500 MG in Sodium Chloride 0.9% 100 ML IV SCH ×3 (05:58→21:51)
[2017-02-14 06:58] LABS: BASO # 0.1 K/uL (0.0-0.2); EOS # 0.1 K/uL (0.0-0.7); EOS % 0.9 % (0.0-4.0); HEMOGLOBIN 11.9 g/dL (11.0-16.0); LYMPH # 2.3 K/uL (1.0-4.3); LYMPH % 38.8 % (20.0-40.0); MEAN CELL VOLUME 88.6 fL (81.0-99.0); MEAN CORPUSCULAR HEMOGLOBIN 29.5 pg (27.0-31.0); MEAN CORPUSCULAR HGB CONC 33.2 g/dL (33.0-37.0); MEAN PLATELET VOLUME 8.3 fL (7.2-11.7); MONO # 0.8 K/uL (0.0-0.8); MONO % 14.3 % (0.0-10.0); NEUT # 2.6 K/uL (1.8-7.0); RBC 4.04 Mil/uL (3.80-5.20); WHITE BLOOD COUNT 5.9 K/uL (4.8-10.8)
[2017-02-14 07:10] LABS: ALBUMIN 3.2 g/dL (3.5-5.0)
[2017-02-14 07:13] LABS: ALB/GLOB RATIO 0.9 (1.0-2.1); ALT/SGPT 23 U/L (9-52); AST/SGOT 17 U/L (14-36); BLOOD UREA NITROGEN 4 mg/dL (7-17); GFR AFRICAN-AMERICAN > 60; GFR NON-AFRICAN AMERICAN > 60
[2017-02-14 07:14] LABS: CALCIUM 8.3 mg/dl (8.6-10.4); MAGNESIUM 2.2 mg/dL (1.6-2.3)
[2017-02-14] MEDS: Oxycodone/Acetaminophen 5/325 mg Tab PO PRN (08:09)
[2017-02-14] MEDS: Pantoprazole 40 mg EC Tab PO SCH (09:45)
--- NOTE | 2017-02-14 16:21 | CP.PCM.PN ---
Subjective - Date & Time of Evaluation Date of Evaluation: 02/14/17 Time of Evaluation: 09:00 - Subjective Subjective: awake alert nad less fever and less headache cultures neg thus far Objective - Vital Signs/Intake and Output Vital Signs (last 24 hours): Temp Pulse Resp BP Pulse Ox 97.7 F 96 H 20 99/55 L 97 02/14/17 15:50 02/14/17 15:50 02/14/17 15:50 02/14/17 15:50 02/14/17 15:50 - Medications Medications: Current Medications Acetaminophen (Tylenol 325mg Tab) 650 mg PO Q6 PRN PRN Reason: Headache Last Admin: 02/13/17 03:09 Dose: 650 mg Vancomycin HCl 1,000 mg/ (Sodium Chloride) 250 mls @ 166.6 mls/hr IVPB Q12H [facility] Last Admin: 02/14/17 12:57 Dose: 166.6 mls/hr Acyclovir 500 mg/ Sodium (Chloride) 100 mls @ 100 mls/hr IV Q8H [facility] Last Admin: 02/14/17 14:16 Dose: 100 mls/hr Ceftriaxone Sodium 2 gm/ (Sodium Chloride) 100 mls @ 100 mls/hr IVPB Q12H [facility] Last Admin: 02/14/17 15:24 Dose: 100 mls/hr Ondansetron HCl (Zofran Inj) 4 mg IVP Q6 PRN PRN Reason: Nausea/Vomiting Stop: 02/16/17 18:57 Last Admin: 02/14/17 08:09 Dose: 4 mg Oxycodone/Acetaminophen (Percocet 5/325 Mg Tab) 1 tab PO Q4H PRN PRN Reason: Headache Stop: 02/15/17 14:47 Last Admin: 02/14/17 08:09 Dose: 1 tab Pantoprazole Sodium (Protonix Ec Tab) 40 mg PO DAILY [facility] Last Admin: 02/14/17 09:45 Dose: 40 mg - Constitutional Appears: Non-toxic, Chronically Ill - Head Exam Head Exam: NORMOCEPHALIC - Eye Exam Eye Exam: PERRL. absent: Scleral icterus - ENT Exam ENT Exam: Mucous Membranes Dry - Neck Exam Neck Exam: absent: Lymphadenopathy - Respiratory Exam Respiratory Exam: Decreased Breath Sounds, Clear to Ausculation Bilateral - Cardiovascular Exam Cardiovascular Exam: REGULAR RHYTHM - GI/Abdominal Exam GI & Abdominal Exam: Distended, Soft - Rectal Exam Rectal Exam: Deferred - Exam Exam: NORMAL INSPECTION - Extremities Exam Extremities Exam: absent: Pedal Edema - Back Exam Back Exam: absent: CVA tenderness (L), CVA tenderness (R) - Neurological Exam Neurological Exam: Alert, Awake, Oriented x3 - Psychiatric Exam Psychiatric exam: Normal Mood - Skin Skin Exam: Dry, Intact Assessment and Plan (1) Meningitis Status: Acute (2) Meningitis Status: Acute (3) Fever Status: Acute (4) Headache Status: Acute - Assessment and Plan (Free Text) Assessment: cont iv rx for 7 days await hsv titers will need folow up serologies after 3 weeks
[2017-02-15] MEDS: cefTRIAXone 2 GM in Sodium Chloride 0.9% 100 ML IVPB SCH ×2 (02:58→14:43)
[2017-02-15] MEDS: Acyclovir 500 MG in Sodium Chloride 0.9% 100 ML IV SCH ×3 (05:42→21:35)
[2017-02-15 07:30] LABS: BASO % 0.7 % (0.0-2.0); EOS # 0.3 K/uL (0.0-0.7); EOS % 4.8 % (0.0-4.0); HEMOGLOBIN 12.5 g/dL (11.0-16.0); LYMPH # 2.4 K/uL (1.0-4.3); LYMPH % 43.3 % (20.0-40.0); MEAN CELL VOLUME 88.9 fL (81.0-99.0); MEAN CORPUSCULAR HEMOGLOBIN 30.2 pg (27.0-31.0); MEAN PLATELET VOLUME 8.1 fL (7.2-11.7); MONO # 0.6 K/uL (0.0-0.8); MONO % 11.8 % (0.0-10.0); NEUT # 2.2 K/uL (1.8-7.0); NEUT % 39.4 % (50.0-75.0); RBC 4.14 Mil/uL (3.80-5.20); RED CELL DISTRIBUTION WIDTH 13.9 % (11.5-14.5); WHITE BLOOD COUNT 5.5 K/uL (4.8-10.8)
[2017-02-15 08:17] LABS: ALBUMIN 3.2 g/dL (3.5-5.0)
[2017-02-15 08:20] LABS: AST/SGOT 19 U/L (14-36); GFR AFRICAN-AMERICAN > 60; GFR NON-AFRICAN AMERICAN > 60
[2017-02-15 08:21] LABS: ALB/GLOB RATIO 1.1 (1.0-2.1); ALT/SGPT 19 U/L (9-52); BLOOD UREA NITROGEN 7 mg/dL (7-17); CALCIUM 7.8 mg/dl (8.6-10.4)
[2017-02-15 08:22] LABS: MAGNESIUM 1.9 mg/dL (1.6-2.3)
[2017-02-15] MEDS: Pantoprazole 40 mg EC Tab PO SCH (09:43)
--- NOTE | 2017-02-15 12:11 | CP.PCM.PN ---
Subjective - Date & Time of Evaluation Date of Evaluation: 02/15/17 Time of Evaluation: 07:00 - Subjective Subjective: iv rx in progress Objective - Vital Signs/Intake and Output Vital Signs (last 24 hours): Temp Pulse Resp BP Pulse Ox 98 F 69 20 102/64 97 02/15/17 07:47 02/15/17 07:47 02/15/17 07:47 02/15/17 07:47 02/15/17 07:47 Intake and Output: 02/15/17 02/15/17 06:59 18:59 Intake Total 220 Output Total 100 Balance 120 - Medications Medications: Current Medications Acetaminophen (Tylenol 325mg Tab) 650 mg PO Q6 PRN PRN Reason: Headache Last Admin: 02/13/17 03:09 Dose: 650 mg Vancomycin HCl 1,000 mg/ (Sodium Chloride) 250 mls @ 166.6 mls/hr IVPB Q12H [facility] Last Admin: 02/15/17 01:26 Dose: 166.6 mls/hr Acyclovir 500 mg/ Sodium (Chloride) 100 mls @ 100 mls/hr IV Q8H [facility] Last Admin: 02/15/17 05:42 Dose: 100 mls/hr Ceftriaxone Sodium 2 gm/ (Sodium Chloride) 100 mls @ 100 mls/hr IVPB Q12H [facility] Last Admin: 02/15/17 02:58 Dose: 100 mls/hr Ondansetron HCl (Zofran Inj) 4 mg IVP Q6 PRN PRN Reason: Nausea/Vomiting Stop: 02/16/17 18:57 Last Admin: 02/15/17 12:06 Dose: 4 mg Oxycodone/Acetaminophen (Percocet 5/325 Mg Tab) 1 tab PO Q4H PRN PRN Reason: Headache Stop: 02/15/17 14:47 Last Admin: 02/14/17 08:09 Dose: 1 tab Pantoprazole Sodium (Protonix Ec Tab) 40 mg PO DAILY [facility] Last Admin: 02/15/17 09:43 Dose: 40 mg - Labs Labs: 02/15/17 07:22 02/15/17 07:22 - Constitutional Appears: Non-toxic, Chronically Ill - Head Exam Head Exam: NORMOCEPHALIC - Eye Exam Eye Exam: PERRL - ENT Exam ENT Exam: Mucous Membranes Dry - Neck Exam Neck Exam: absent: Lymphadenopathy - Respiratory Exam Respiratory Exam: Decreased Breath Sounds - Cardiovascular Exam Cardiovascular Exam: REGULAR RHYTHM - GI/Abdominal Exam GI & Abdominal Exam: Distended, Soft - Rectal Exam Rectal Exam: Deferred Assessment and Plan (1) Meningitis Status: Acute (2) Meningitis Status: Acute (3) Fever Status: Acute (4) Headache Status: Acute
--- NOTE | 2017-02-15 14:28 | CP.PCM.PN ---
Subjective - Date & Time of Evaluation Date of Evaluation: 02/15/17 Time of Evaluation: 14:25 - Subjective Subjective: Pt seen and examined at bedside. She appears slightly lethargic and just awoke from sleep. She denies any acute symptoms but states that she continues to have some neck stiffness. She denies f/c/n/v/d/c/cp/sob. Objective - Vital Signs/Intake and Output Vital Signs (last 24 hours): Temp Pulse Resp BP Pulse Ox 98 F 69 20 102/64 97 02/15/17 07:47 02/15/17 07:47 02/15/17 07:47 02/15/17 07:47 02/15/17 07:47 Intake and Output: 02/15/17 02/15/17 06:59 18:59 Intake Total 220 Output Total 100 Balance 120 - Medications Medications: Current Medications Acetaminophen (Tylenol 325mg Tab) 650 mg PO Q6 PRN PRN Reason: Headache Last Admin: 02/13/17 03:09 Dose: 650 mg Vancomycin HCl 1,000 mg/ (Sodium Chloride) 250 mls @ 166.6 mls/hr IVPB Q12H [facility] Last Admin: 02/15/17 12:47 Dose: 166.6 mls/hr Acyclovir 500 mg/ Sodium (Chloride) 100 mls @ 100 mls/hr IV Q8H [facility] Last Admin: 02/15/17 14:04 Dose: 100 mls/hr Ceftriaxone Sodium 2 gm/ (Sodium Chloride) 100 mls @ 100 mls/hr IVPB Q12H [facility] Last Admin: 02/15/17 02:58 Dose: 100 mls/hr Ondansetron HCl (Zofran Inj) 4 mg IVP Q6 PRN PRN Reason: Nausea/Vomiting Stop: 02/16/17 18:57 Last Admin: 02/15/17 12:06 Dose: 4 mg Oxycodone/Acetaminophen (Percocet 5/325 Mg Tab) 1 tab PO Q4H PRN PRN Reason: Headache Stop: 02/15/17 14:47 Last Admin: 02/14/17 08:09 Dose: 1 tab Pantoprazole Sodium (Protonix Ec Tab) 40 mg PO DAILY [facility] Last Admin: 02/15/17 09:43 Dose: 40 mg - Labs Labs: 02/15/17 07:22 02/15/17 07:22 - Constitutional Appears: No Acute Distress - Head Exam Head Exam: ATRAUMATIC, NORMAL INSPECTION - Eye Exam Eye Exam: EOMI, Normal appearance - ENT Exam ENT Exam: Mucous Membranes Moist - Respiratory Exam Respiratory Exam: Clear to Ausculation Bilateral, NORMAL BREATHING PATTERN - Cardiovascular Exam Cardiovascular Exam: REGULAR RHYTHM - GI/Abdominal Exam GI & Abdominal Exam: Soft. absent: Distended, Tenderness - Neurological Exam Neurological Exam: Alert, Awake, Oriented x3 Assessment and Plan - Assessment and Plan (Free Text) Plan: Patient is afebrile ans she appears to be clinically improving. WBC 5.5 this AM. No left shift. ID consult placed- Dr. Bullard- recommendations appreciated continue antibiotics x7days total Acyclovir IVPB - Day 2 Vancomycin IVPB - Day 2 Rocephin IVPB- Day 2 Neuro consult placed- Dr. Collins- Recommendations appreciated Brain MRI: no acute changes Blood Cx: no growth to date CSF studies showed no growth CSF gram stain shows polymorphous WBCs. No organisms seen. CSF: WBC 425, RBC 28, Total protein 120, glucose 36. VDRL non reactive. f/u CSF Fungal Cx Lactate: 1.8 on 02/12/17 Percocet 1 tab PO Q4H PRN pain zofran prn nausea Prophylaxis Protonix 40 SC daily SCDs Plan for discharge on Wednesday with completion of antibiotics All management as per Dr. Chapman.
[2017-02-16] MEDS: cefTRIAXone 2 GM in Sodium Chloride 0.9% 100 ML IVPB SCH ×2 (02:16→15:40)
[2017-02-16] MEDS: Acyclovir 500 MG in Sodium Chloride 0.9% 100 ML IV SCH ×3 (05:46→21:13)
[2017-02-16 07:17] LABS: BASO # 0.1 K/uL (0.0-0.2); EOS # 0.4 K/uL (0.0-0.7); EOS % 6.5 % (0.0-4.0); LYMPH # 2.3 K/uL (1.0-4.3); LYMPH % 36.3 % (20.0-40.0); MEAN CELL VOLUME 89.3 fL (81.0-99.0); MEAN CORPUSCULAR HEMOGLOBIN 29.6 pg (27.0-31.0); MEAN CORPUSCULAR HGB CONC 33.2 g/dL (33.0-37.0); MEAN PLATELET VOLUME 8.5 fL (7.2-11.7); MONO # 0.6 K/uL (0.0-0.8); MONO % 9.3 % (0.0-10.0); NEUT % 46.9 % (50.0-75.0); NRBC % 0.1 % (0.0-2.0); RBC 4.06 Mil/uL (3.80-5.20); WHITE BLOOD COUNT 6.4 K/uL (4.8-10.8)
[2017-02-16 07:46] LABS: ALBUMIN 3.2 g/dL (3.5-5.0)
[2017-02-16 07:49] LABS: ALT/SGPT 20 U/L (9-52); AST/SGOT 18 U/L (14-36); BLOOD UREA NITROGEN 12 mg/dL (7-17); GFR AFRICAN-AMERICAN > 60; GFR NON-AFRICAN AMERICAN > 60
[2017-02-16 07:50] LABS: CALCIUM 8.7 mg/dl (8.6-10.4)
[2017-02-16] MEDS: Pantoprazole 40 mg EC Tab PO SCH (10:51)
--- NOTE | 2017-02-16 11:32 | CP.PCM.PN ---
Subjective - Date & Time of Evaluation Date of Evaluation: 02/16/17 Time of Evaluation: 08:00 - Subjective Subjective: no fever or leukocytosis all cultures neg off isolation cont rx for 7 days Objective - Vital Signs/Intake and Output Vital Signs (last 24 hours): Temp Pulse Resp BP Pulse Ox 98.6 F 66 19 107/69 98 02/16/17 08:00 02/16/17 08:00 02/16/17 08:00 02/16/17 08:00 02/16/17 08:00 Intake and Output: 02/16/17 02/16/17 06:59 18:59 Intake Total 340 Balance 340 - Medications Medications: Current Medications Acetaminophen (Tylenol 325mg Tab) 650 mg PO Q6 PRN PRN Reason: Headache Last Admin: 02/13/17 03:09 Dose: 650 mg Acyclovir 500 mg/ Sodium (Chloride) 100 mls @ 100 mls/hr IV Q8H [facility] Last Admin: 02/16/17 05:46 Dose: 100 mls/hr Ceftriaxone Sodium 2 gm/ (Sodium Chloride) 100 mls @ 100 mls/hr IVPB Q12H [facility] Last Admin: 02/16/17 02:16 Dose: 100 mls/hr Vancomycin/Sodium Chloride (Vancocin) 1 gm in 200 mls @ 133.333 mls/hr IVPB Q12H [facility] Ondansetron HCl (Zofran Inj) 4 mg IVP Q6 PRN PRN Reason: Nausea/Vomiting Stop: 02/16/17 18:57 Last Admin: 02/15/17 12:06 Dose: 4 mg Pantoprazole Sodium (Protonix Ec Tab) 40 mg PO DAILY [facility] Last Admin: 02/16/17 10:51 Dose: 40 mg - Labs Labs: 02/16/17 07:01 02/16/17 07:01 - Constitutional Appears: Non-toxic, Chronically Ill - Head Exam Head Exam: NORMOCEPHALIC - Eye Exam Eye Exam: PERRL. absent: Scleral icterus - ENT Exam ENT Exam: Mucous Membranes Dry - Neck Exam Neck Exam: absent: Lymphadenopathy - Respiratory Exam Respiratory Exam: Decreased Breath Sounds, Clear to Ausculation Bilateral - Cardiovascular Exam Cardiovascular Exam: REGULAR RHYTHM - GI/Abdominal Exam GI & Abdominal Exam: Distended, Soft Assessment and Plan (1) Meningitis Status: Acute (2) Meningitis Status: Acute (3) Fever Status: Acute (4) Headache Status: Acute
[2017-02-16] MEDS: Vancomycin 1 gm/NS 200 ml 1 GM/200 ML BAG IVPB SCH (13:16)
--- NOTE | 2017-02-16 17:23 | CP.PCM.PN ---
Subjective - Date & Time of Evaluation Date of Evaluation: 02/16/17 Time of Evaluation: 17:21 - Subjective Subjective: medicine note for Dr. Chapman's Service Pt seen and examined at bedside. She is in good spirits and states that she is doing well today. No acute events overnight. She has been afebrile. She denies any acute symptoms. She denies f/c/n/v/d/c/cp/sob. Objective - Vital Signs/Intake and Output Vital Signs (last 24 hours): Temp Pulse Resp BP Pulse Ox 98.6 F 66 19 107/69 98 02/16/17 08:00 02/16/17 08:00 02/16/17 08:00 02/16/17 08:00 02/16/17 08:00 Intake and Output: 02/16/17 02/16/17 06:59 18:59 Intake Total 340 680 Balance 340 680 - Medications Medications: Current Medications Acetaminophen (Tylenol 325mg Tab) 650 mg PO Q6 PRN PRN Reason: Headache Last Admin: 02/13/17 03:09 Dose: 650 mg Acyclovir 500 mg/ Sodium (Chloride) 100 mls @ 100 mls/hr IV Q8H [facility] Last Admin: 02/16/17 14:19 Dose: 100 mls/hr Ceftriaxone Sodium 2 gm/ (Sodium Chloride) 100 mls @ 100 mls/hr IVPB Q12H [facility] Last Admin: 02/16/17 15:40 Dose: 100 mls/hr Vancomycin/Sodium Chloride (Vancocin) 1 gm in 200 mls @ 133.333 mls/hr IVPB Q12H [facility] Last Admin: 02/16/17 13:16 Dose: 133.333 mls/hr Ondansetron HCl (Zofran Inj) 4 mg IVP Q6 PRN PRN Reason: Nausea/Vomiting Stop: 02/16/17 18:57 Last Admin: 02/15/17 12:06 Dose: 4 mg Pantoprazole Sodium (Protonix Ec Tab) 40 mg PO DAILY [facility] Last Admin: 02/16/17 10:51 Dose: 40 mg - Labs Labs: 02/16/17 07:01 02/16/17 07:01 - Head Exam Head Exam: ATRAUMATIC, NORMOCEPHALIC - Eye Exam Eye Exam: EOMI, Normal appearance - ENT Exam ENT Exam: Mucous Membranes Moist - Neck Exam Neck Exam: Full ROM - Respiratory Exam Respiratory Exam: Clear to Ausculation Bilateral, NORMAL BREATHING PATTERN - Cardiovascular Exam Cardiovascular Exam: REGULAR RHYTHM - GI/Abdominal Exam GI & Abdominal Exam: Soft. absent: Distended, Tenderness - Neurological Exam Neurological Exam: Alert, Awake, Oriented x3 Assessment and Plan - Assessment and Plan (Free Text) Plan: Viral Meningitis Patient is afebrile and she appears clinically improving; asymptomatic WBC 6.4 this AM. No left shift. ID consult placed- Dr. Bullard- recommendations appreciated continue antibiotics x7days total Acyclovir IVPB - Day 6 Vancomycin IVPB - Day 6 Rocephin IVPB- Day 6 Neuro consult placed- Dr. Collins- Recommendations appreciated Brain MRI: no acute changes Blood Cx: no growth to date CSF studies showed no growth CSF gram stain shows polymorphous WBCs. No organisms seen. CSF: WBC 425, RBC 28, Total protein 120, glucose 36. VDRL non reactive. CSF Fungal Cx negative Lactate: 1.8 on 02/12/17 Percocet 1 tab PO Q4H PRN pain zofran prn nausea Prophylaxis Protonix 40 SC daily SCDs Plan for discharge on Wednesday with completion of antibiotics for a full 7 days as per ID request. All management as per Dr. Chapman.
[2017-02-16 17:40] VITALS: RESP 20
[2017-02-16 20:35] LABS: WNV AB IGM 0.05
[2017-02-17] MEDS: Vancomycin 1 gm/NS 200 ml 1 GM/200 ML BAG IVPB SCH (01:07)
[2017-02-17] MEDS: cefTRIAXone 2 GM in Sodium Chloride 0.9% 100 ML IVPB SCH (03:00)
[2017-02-17] MEDS: Acyclovir 500 MG in Sodium Chloride 0.9% 100 ML IV SCH (05:25)
[2017-02-17 07:18] LABS: BASO # 0.1 K/uL (0.0-0.2); BASO % 0.9 % (0.0-2.0); EOS # 0.5 K/uL (0.0-0.7); EOS % 7.5 % (0.0-4.0); HEMOGLOBIN 12.5 g/dL (11.0-16.0); LYMPH % 29.2 % (20.0-40.0); MEAN CELL VOLUME 89.7 fL (81.0-99.0); MEAN CORPUSCULAR HEMOGLOBIN 29.7 pg (27.0-31.0); MEAN CORPUSCULAR HGB CONC 33.1 g/dL (33.0-37.0); MEAN PLATELET VOLUME 8.4 fL (7.2-11.7); MONO # 0.7 K/uL (0.0-0.8); MONO % 10.8 % (0.0-10.0); NEUT # 3.5 K/uL (1.8-7.0); NEUT % 51.6 % (50.0-75.0); RBC 4.21 Mil/uL (3.80-5.20); RED CELL DISTRIBUTION WIDTH 14.1 % (11.5-14.5); WHITE BLOOD COUNT 6.7 K/uL (4.8-10.8)
[2017-02-17 07:40] LABS: ALBUMIN 3.4 g/dL (3.5-5.0)
[2017-02-17 07:43] LABS: ALT/SGPT 24 U/L (9-52); AST/SGOT 19 U/L (14-36); BLOOD UREA NITROGEN 11 mg/dL (7-17); GFR AFRICAN-AMERICAN > 60; GFR NON-AFRICAN AMERICAN > 60
[2017-02-17 07:44] LABS: CALCIUM 8.7 mg/dl (8.6-10.4)
[2017-02-17 08:15] VITALS: BP 100/67; PULSE 74; TEMP 98; O2SAT 98
[2017-02-17] MEDS: Pantoprazole 40 mg EC Tab PO SCH (09:26)
--- NOTE | 2017-02-17 10:19 | CP.PCM.PN ---
Subjective - Date & Time of Evaluation Date of Evaluation: 02/17/17 Time of Evaluation: 07:00 - Subjective Subjective: mMedicine note for Dr. Chapman's Service Pt seen and examined at bedside. She is in good spirits and states that she is doing well today and feels like she is "back to normal". No acute events overnight. She has been afebrile. She denies any acute symptoms and states that her neck pain has resolved. She denies f/c/n/v/d/c/cp/sob. Objective - Vital Signs/Intake and Output Vital Signs (last 24 hours): Temp Pulse Resp BP Pulse Ox 98 F 74 20 100/67 98 02/17/17 08:14 02/17/17 08:14 02/17/17 08:14 02/17/17 08:14 02/17/17 08:14 Intake and Output: 02/17/17 02/17/17 06:59 18:59 Intake Total 400 Balance 400 - Medications Medications: Current Medications Acetaminophen (Tylenol 325mg Tab) 650 mg PO Q6 PRN PRN Reason: Headache Last Admin: 02/13/17 03:09 Dose: 650 mg Acyclovir 500 mg/ Sodium (Chloride) 100 mls @ 100 mls/hr IV Q8H [facility] Last Admin: 02/17/17 05:25 Dose: 100 mls/hr Ceftriaxone Sodium 2 gm/ (Sodium Chloride) 100 mls @ 100 mls/hr IVPB Q12H [facility] Last Admin: 02/17/17 03:00 Dose: 100 mls/hr Vancomycin/Sodium Chloride (Vancocin) 1 gm in 200 mls @ 133.333 mls/hr IVPB Q12H [facility] Stop: 02/22/17 12:01 Pantoprazole Sodium (Protonix Ec Tab) 40 mg PO DAILY [facility] Last Admin: 02/17/17 09:26 Dose: 40 mg - Labs Labs: 02/17/17 06:53 02/17/17 06:53 - Constitutional Appears: Non-toxic, No Acute Distress - Head Exam Head Exam: ATRAUMATIC, NORMAL INSPECTION - Eye Exam Eye Exam: EOMI, Normal appearance, PERRL Pupil Exam: NORMAL ACCOMODATION - ENT Exam ENT Exam: Mucous Membranes Moist - Neck Exam Neck Exam: Full ROM. absent: Tenderness - Respiratory Exam Respiratory Exam: Clear to Ausculation Bilateral, NORMAL BREATHING PATTERN. absent: Rales, Rhonchi, Wheezes, Respiratory Distress - Cardiovascular Exam Cardiovascular Exam: REGULAR RHYTHM, +S1, +S2 - GI/Abdominal Exam GI & Abdominal Exam: Soft, Normal Bowel Sounds. absent: Distended, Firm, Guarding, Tenderness - Extremities Exam Extremities Exam: Normal Inspection. absent: Calf Tenderness, Full ROM, Pedal Edema - Back Exam Back Exam: NORMAL INSPECTION. absent: CVA tenderness (L), CVA tenderness (R), paraspinal tenderness - Neurological Exam Neurological Exam: Alert, Awake, CN II-XII Intact, Normal Gait, Oriented x3 - Psychiatric Exam Psychiatric exam: Normal Affect, Normal Mood - Skin Skin Exam: Dry, Intact, Normal Color, Warm Assessment and Plan - Assessment and Plan (Free Text) Assessment: Viral Meningitis Symptoms have resolved Patient is afebrile, WBC ID consult placed- Dr. Bullard- recommendations appreciated continue antibiotics x7days total Acyclovir IVPB - Day 6 Vancomycin IVPB - Day 6 Rocephin IVPB- Day 6 Neuro consult placed- Dr. Collins- Recommendations appreciated Brain MRI: no acute changes Blood Cx: no growth to date CSF studies showed no growth CSF gram stain shows polymorphous WBCs. No organisms seen. CSF: WBC 425, RBC 28, Total protein 120, glucose 36. VDRL non reactive. CSF Fungal Cx negative Lactate: 1.8 on 02/12/17 Percocet 1 tab PO Q4H PRN pain zofran prn nausea Prophylaxis Protonix 40 SC daily SCDs Patient is stable for discharge per Dr. Chapman. She is to follow up with Dr. Chapman with 1 week for post hospital care. She is to call and make an appointment. Patient is to return to the emergency room if symptoms return. All instructions explained to the patient and she agrees. All management as per Dr. Chapman.
[2017-02-17] MEDS ORDERED: Vancomycin 1 gm/NS 200 ml 1 GM/200 ML BAG IVPB SCH (12:00)
== END 2017-02-17 13:40 | disposition home or self-care (01) | DRG 76 ==
LOC: C.ER 11:23 → C.9E 14:02 → C.5T 17:21 → OBSVTOIN 02-14 14:30 → C.3T 02-16 10:20
PROVIDERS: ADMIT Internal Medicine Pulmonary Disease; ATTEND Internal Medicine Pulmonary Disease
PROC: 009U3ZX Drainage of Spinal Canal, Percutaneous Approach, Diagnostic (ICD-10-PCS; principal; 2017-02-14)
DX: A87.9 Viral meningitis, unspecified (principal)